=== PATIENT | male | born 1935 | race Caucasian/White ===

== ENCOUNTER 2019-01-24 12:19 | Observation (INO) ==
[2019-01-24] MEDS ORDERED: DESYREL PO PRN (12:39)
[2019-01-24 13:30] LABS: HEMATOCRIT 43.7 % (42.0-52.0); MCH 29.3 PG (27-31); MCV 91.4 FL (81-99); RBC 4.78 XMIL (4.7-6.1); RDW 13.6 % (11.5-14.5); WBC 6.82 X1000 (4.8-10.8)
[2019-01-24 13:37] LABS: INR 0.9; PROTIME 12.9 Seconds (11.0-16.0)
[2019-01-24] MEDS: PLAVIX PO SCH (17:39)
--- NOTE | 2019-01-24 18:16 | Diag Imaging Result Doc PS360 ---
EXAM: CT HEAD W/O CONTRAST 01/24/2019 HISTORY: TIA TECHNIQUE: This exam was performed using automated exposure control, adjustment of mA or kV according to patient size, and/or use of iterative reconstruction technique. COMMENT: There are no previous studies. There are calcifications in the vertebral and internal carotid arteries. There is no evidence of mass effect bleed or abnormal extra-axial fluid collection. There is some patchy lucency in the white matter both hemispheres bilaterally consistent with chronic microvascular disease. The calvarium is intact. The visualized paranasal sinuses are clear. IMPRESSION: Minimal chronic microvascular changes. No evidence of acute disease. Electronically signed by Christopher Loving 01/24/2019 6:13 PM
--- NOTE | 2019-01-24 20:07 | ECHO REPORT ---
ORDER DATE: 01/24/2019 INTERPRETING PHYSICIAN: Edenilson Lara MD. CLINICAL INDICATIONS: TIA. REQUESTING PROVIDER: Dr. Guzman. M-MODE MEASUREMENTS: Left ventricle end diastole: 3.7 cm. Left ventricle end systole: 2.3 cm. Posterior wall: 1.2 cm. Interventricular septum: 1.3 cm. Left atrium: 2.6 cm. Aortic root: 3.8 cm. SUMMARY OF 2-DIMENSIONAL IMAGIN. Left ventricular function is normal. Ejection fraction of 64%. There is no wall motion abnormality. 2. The right ventricle is normal. The atria appear to be normal. 3. The tricuspid valve shows mild degree of regurgitation. 4. Pulmonary pressure is estimated at 33 to 38 mmHg. 5. The aortic valve shows minimal sclerosis of the cusps with normal opening. Color flow mapping unremarkable. 6. The pulmonic valve is unremarkable. 7. The mitral valve looks normal. Color flow mapping unremarkable. 8. Pulse wave Doppler of mitral inflow shows mild reversal of the E and the A ratio. Ratio is 0.8. 9. Tissue Doppler of septal and lateral mitral annulus averages 5 1/2 cm. 10.There is normal pulmonary venous flow. 11.There is impaired left ventricular relaxation. 12.There is no pericardial effusion, mass, and no thrombus. 13.The right-sided chambers appear to be unremarkable. Clinical correlation is recommended. cc: MD Mitchel Walton MD
[2019-01-24] MEDS: ZANTAC PO SCH (20:21)
[2019-01-24] MEDS ORDERED: ZOCOR PO SCH (21:00)
[2019-01-25 07:46] VITALS: BP 150/73
[2019-01-25] MEDS: ZANTAC PO SCH (08:19)
[2019-01-25] MEDS: CELEBREX PO SCH ×2 (08:19→08:28)
[2019-01-25] MEDS: PLAVIX PO SCH (08:19)
[2019-01-25] MEDS ORDERED: ALLEGRA PO SCH (09:00)
[2019-01-25] MEDS ORDERED: COENZYME Q10 PO SCH (09:00)
[2019-01-25] MEDS ORDERED: SINGULAIR PO SCH (09:00)
--- NOTE | 2019-01-26 04:39 | DISCHARGE SUMMARY ---
ADMISSION DATE: 01/24/2019 DISCHARGE DATE: 01/25/2019 DISCHARGE DIAGNOSES: 1. Transient ischemic attack. 2. Mixed hyperlipidemia. 3. Gastroesophageal reflux disease without esophagitis. 4. Allergic rhinitis. 5. Osteoarthritis. DISCHARGE INSTRUCTIONS: 1. Return to clinic in 1 week to see me, Dr. Mango Guzman, in anticipation of a transition of care visit. 2. Activity as tolerated. 3. Healthy heart diet. 4. Medications: Simvastatin 20 mg at bedtime, Plavix 75 mg daily, fexofenadine 180 mg daily, Singulair 10 mg daily, Zantac 150 mg b.i.d., CoQ10 100 mg daily, trazodone 50 mg at bedtime as p.r.n. insomnia. DISCHARGE PHYSICAL EXAMINATION: General: This is a well-developed, well-nourished 83-year-old gentleman in no apparent distress. Vital Signs: He is afebrile, pulse 67, respirations 20, BP 130/65. Neck: He has a left carotid bruit. Cardiovascular: Regular rate and rhythm. No murmur noted. Lungs: Clear. Abdomen: Soft, nontender, with active bowel sounds. Neurologic: Nonfocal. HOSPITAL COURSE: Mr. Horta was admitted to [facility] for evaluation of a TIA. He had several episodes in which he felt dizzy, had slurred speech and right upper extremity weakness. His symptoms typically lasted less than 5 minutes and resolved spontaneously. The patient remained in normal sinus rhythm throughout his hospitalization. There was no evidence of any arrhythmias such as atrial fibrillation. A 2D echocardiogram was grossly normal. An ultrasound of the carotids demonstrated a 0-40% blockage in the right carotid and 40-59%on the left. There was no obstruction of blood flow. A CT scan of the brain demonstrated minimal chronic microvascular changes. There was no evidence of an acute stroke. He had no further neurologic deficits. We will continue Plavix 75 mg daily which was started on admission. We will continue aggressive lipid management with simvastatin. I would like to see is total cholesterol less than 200, HDL greater than 50 and LDL less than 100. He does have a longstanding history of gastroesophageal reflux disease. He had been taking omeprazole. Omeprazole will inactivate Plavix. I switched him to Zantac 150 mg b.i.d. He has had no refractory reflux-type symptoms. He does have a history of osteoarthritis. He had been taking Celebrex on a daily basis. Celebrex and Plavix together will increase the risk of bleeding complications. We stopped the Celebrex. I told him that he may take Tylenol every 8 hours as needed for joint pain. Having reached maximum hospital benefit, the patient was discharged in stable condition. cc: Mitchel Guzman MD
--- NOTE | 2019-01-28 15:42 | Carotid Study ---
DATE: 01/24/2019 PROCEDURE: Carotid duplex imaging. REFERRING PHYSICIAN: Dr. Guzman INTERPRETING PHYSICIAN: Dr. Hanna TECH: Melissa INDICATIONS: The patient has had a TIA. OBSERVED DATA RIGHT LEFT Brachial Blood Pressure Carotid Pulse Bruits: Carotid/Sub DIAGRAM OF ULTRASOUND IMAGING R L RIGHT INT EXT INT EXT LEFT Rl (cm/s) Rl (cm/s) Subclavian Subclavian CCA Proximal CCA Proximal CCA Distal CCA Distal Bulb Bulb ICA Proximal ICA Proximal ICA Mid ICA Mid ICA Distal ICA Distal ECA ECA Vertebral Vertebral ICA/CCA Ratio 0.94 ICA/CCA Ratio 1.14 % Stenosis 0 to 39 % Stenosis 0 to 39 FINDINGS: No significant plaque disease identified. PHYSICIAN INTERPRETATION: No significant plaque disease identified. There is antegrade vertebral flow bilaterally. cc: MD Mitchel Cooper MD
== END 2019-01-25 09:13 | disposition home or self-care (01) ==
LOC: DIRADM → 3N 12:19
PROVIDERS: ADMIT Internal Medicine; ATTEND Internal Medicine
CPT/HCPCS: 70450; 80061; 83721; 84439; 84443; 85027; 85610; 85730; 93306; 93880; A9270